=== PATIENT | female | born 1940 | race Caucasian/White ===

== ENCOUNTER 2017-08-05 06:54 | Day surgery (SDC) | payer MEDICARE, OTHER ==
[2017-08-05] MEDS ORDERED: Lactated Ringers 1,000 ML IV SCH (06:55)
[2017-08-05] MEDS ORDERED: Sodium Chloride 0.9% 5 ML Syringe FLUSH PRN (06:55)
[2017-08-05] MEDS ORDERED: Gatifloxacin 0.5% Ophth Soln 2.5 ML Bot EYERT SCH (06:55)
[2017-08-05] MEDS: Phenylephrine 10% Ophth Soln 5 ML Bot EYERT SCH ×3 (07:27→07:48)
[2017-08-05] MEDS: Cyclopentolate 1% Opth Soln 2 ML Bottle EYERT SCH ×3 (07:32→07:53)
[2017-08-05] MEDS ORDERED: Water For Irrigation,Sterile 1,500 ML Container IRR ONE (09:22)
[2017-08-05] MEDS ORDERED: Balanced Salt Solution Plus Ophth Irrig 500 ML Bottle IOCULAR ONE (09:23)
[2017-08-05] MEDS ORDERED: Tetracaine 0.5% 2 ML Bottle EYEBOTH ONE (09:23)
[2017-08-05] MEDS ORDERED: Carbachol 0.01% Intraocular 1.5 ML Vial EYERT ONE (09:23)
[2017-08-05] MEDS ORDERED: Balanced Salt Solution Ophth Irrig 15 ML Bottle EYERT ONE (09:23)
[2017-08-05] MEDS ORDERED: Dexamethasone/Neomycin/Polymyxin B Ophth Oint 3.5 GM Tube EYERT ONE (09:24)
[2017-08-05] MEDS ORDERED: EPINEPHrine 1 MG/ML SDV ONE (09:24)
[2017-08-05] MEDS ORDERED: Lidocaine 1% 10 ML MDV INJECT ONE (09:25)
[2017-08-05] MEDS ORDERED: Lidocaine 2% with EPINEPHrine 1:100,000 20 ML MDV INJECT ONE (09:25)
[2017-08-05] MEDS ORDERED: Hyaluronate Sodium 1% 0.85 ML Syringe IOCULAR ONE (09:26)
[2017-08-05 10:22] VITALS: BP 143/60
--- NOTE | 2017-08-06 08:21 | OR ---
DATE OF SURGERY: 08/05/2017 SURGEON: Yinka Osborn MD PREOPERATIVE DIAGNOSIS: Cataract, right eye. POSTOPERATIVE DIAGNOSIS: Cataract, right eye. OPERATION PERFORMED: Phacoemulsification with posterior chamber lens insertion, right eye. FINDINGS: The patient was taken to the operating room where appropriate anesthesia, sedation and monitoring were provided. A retrobulbar block was given on the right side. The eye was massaged and was found to be appropriately soft. The eye and eyelids were then prepped and draped in the usual sterile manner. A lid speculum was placed. A micro sharp blade was used to enter the anterior chamber inside the limbus superior-temporally. Xylocaine was irrigated into the eye at this site. Healon was irrigated into the eye through this site. Then using a 2.85 mm corneal blade an entry was made into the anterior chamber just inside the limbus temporally. Healon was again irrigated into the eye. Then using a cystitome, the anterior capsulorrhexis was created. The lens nucleus was hydrodissected using a 27 gauge cannula and balanced salt solution. The phacoemulsification unit was introduced through the temporal site and the Franco spatula through the superior temporal site. In so doing, the lens nucleus was phacoemulsified. The cortical fragments of the lens were removed using the irrigation aspiration unit. The posterior capsule was polished. Healon was irrigated into the eye. The posterior chamber lens was inserted and rotated into position inside the capsular bag. The Healon was irrigated out of the eye. Miostat was irrigated into the eye and the pupil rounded nicely. A single interrupted 10-0 Nylon suture was placed through the temporal corneal incision site. Balanced salt solution was irrigated into the eye. The wound was tested and found to be tight. Maxitrol ointment was placed into the patient's right eye. The eyelids were closed and an eye patch and llanos shield were placed. The patient left the operating room in good condition. /[id number]/MODL
== END 2017-08-05 10:19 | disposition home or self-care (01) ==
LOC: KA.SDS 06:54
PROVIDERS: ATTEND Ophthalmology
DX: H26.9 Unspecified cataract (principal); I10 Essential (primary) hypertension; E03.9 Hypothyroidism, unspecified; M81.0 Age-related osteoporosis without current pathological fracture; Z79.899 Other long term (current) drug therapy; Z98.890 Other specified postprocedural states
CPT/HCPCS: 66984; 93005; A9270; J0171; J7120; 00142; V2632

== ENCOUNTER 2017-09-02 06:09 | Day surgery (SDC) | payer MEDICARE, OTHER ==
[2017-09-02] MEDS ORDERED: Sodium Chloride 0.9% 5 ML Syringe FLUSH PRN (06:15)
[2017-09-02] MEDS ORDERED: Gatifloxacin 0.5% Ophth Soln 2.5 ML Bot EYELF SCH (06:15)
[2017-09-02] MEDS ORDERED: Lactated Ringers 1,000 ML IV SCH (06:15)
[2017-09-02] MEDS: Cyclopentolate 1% Opth Soln 2 ML Bottle EYELF SCH ×3 (06:24→06:45)
[2017-09-02] MEDS: Phenylephrine 10% Ophth Soln 5 ML Bot EYELF SCH ×3 (06:30→06:50)
[2017-09-02] MEDS ORDERED: Water For Irrigation,Sterile 1,500 ML Container IRR ONE (08:30)
[2017-09-02] MEDS ORDERED: Balanced Salt Solution Plus Ophth Irrig 500 ML Bottle IOCULAR ONE (08:31)
[2017-09-02] MEDS ORDERED: Carbachol 0.01% Intraocular 1.5 ML Vial EYELF ONE (08:31)
[2017-09-02] MEDS ORDERED: Balanced Salt Solution Ophth Irrig 15 ML Bottle EYELF ONE (08:31)
[2017-09-02] MEDS ORDERED: Tetracaine 0.5% 2 ML Bottle EYEBOTH ONE (08:31)
[2017-09-02] MEDS ORDERED: Dexamethasone/Neomycin/Polymyxin B Ophth Oint 3.5 GM Tube EYELF ONE (08:32)
[2017-09-02] MEDS ORDERED: EPINEPHrine 1 MG/ML SDV ONE (08:32)
[2017-09-02] MEDS ORDERED: Lidocaine 2% with EPINEPHrine 1:100,000 20 ML MDV INFILT ONE (08:33)
[2017-09-02] MEDS ORDERED: Phenylephrine 10% Ophth Soln 5 ML Bot EYELF ONE (08:34)
[2017-09-02] MEDS ORDERED: Lidocaine 1% 10 ML MDV INJECT ONE (08:34)
[2017-09-02] MEDS ORDERED: Hyaluronate Sodium 1% 0.85 ML Syringe IOCULAR ONE (08:35)
[2017-09-02 08:53] VITALS: BP 156/70
--- NOTE | 2017-09-03 09:51 | OR ---
DATE OF SURGERY: 09/02/2017 SURGEON: Yinka Osborn MD PREOPERATIVE DIAGNOSIS: Cataract, left eye. POSTOPERATIVE DIAGNOSIS: Cataract, left eye. OPERATION PERFORMED: Phacoemulsification with posterior chamber lens insertion, left eye. FINDINGS: The patient was taken to the operating room where appropriate anesthesia, sedation and monitoring were provided. A retrobulbar block was given on the left side. The eye was massaged and was found to be appropriately soft. The eye and eyelids were then prepped and draped in the usual sterile manner. A lid speculum was placed. A micro sharp blade was used to enter the anterior chamber inside the limbus inferior-temporally. Xylocaine was irrigated into the eye at this site. Healon was irrigated into the eye through this site. Then using a 2.85 mm corneal blade an entry was made into the anterior chamber just inside the limbus temporally. Healon was again irrigated into the eye. Then using a cystitome, the anterior capsulorrhexis was created. The lens nucleus was hydrodissected using a 27 gauge cannula and balanced salt solution. The phacoemulsification unit was introduced through the temporal site and the Franco spatula through the inferior temporal site. In so doing, the lens nucleus was phacoemulsified. The cortical fragments of the lens were removed using the irrigation aspiration unit. The posterior capsule was polished. Healon was irrigated into the eye. The posterior chamber lens was inserted and rotated into position inside the capsular bag. The Healon was irrigated out of the eye. Miostat was irrigated into the eye and the pupil rounded nicely. A single interrupted 10-0 Nylon suture was placed through the temporal corneal incision site. Balanced salt solution was irrigated into the eye. The wound was tested and found to be tight. Maxitrol ointment was placed into the patient's left eye. The eyelids were closed and an eye patch and llanos shield were placed. The patient left the operating room in good condition. /[id number]/MODL
== END 2017-09-02 09:16 | disposition home or self-care (01) ==
LOC: KA.SDS 06:09
PROVIDERS: ATTEND Ophthalmology
DX: H26.9 Unspecified cataract (principal); I10 Essential (primary) hypertension; E03.9 Hypothyroidism, unspecified; Z79.899 Other long term (current) drug therapy
CPT/HCPCS: 66984; A9270; J0171; J7120; 00142; V2632

== ENCOUNTER 2020-10-30 08:01 | Day surgery (SDC) | payer MEDICARE, OTHER ==
[~2020-10-30 08:01] MED LIST: Lactated Ringers 1,000 ML IV SCH; Sodium Chloride 0.9% 10 ML Syringe FLUSH PRN
[2020-10-30] MEDS ORDERED: Propofol 200 MG/20 ML SDV ONE (08:55)
[2020-10-30] MEDS: Lactated Ringers 1,000 ML ONE ×2 (10:40→13:39)
[2020-10-30] MEDS ORDERED: Lactated Ringers 1,000 ML IV SCH (10:40)
--- NOTE | 2020-10-30 11:03 | PCM.PRNOTE ---
- Free Text/Narrative Note: PROCEDURE PERFORMED: Esophagogastroduodenoscopy with biopsy and colonoscopy with biopsy PRE-PROCEDURE DIAGNOSIS/INDICATION FOR PROCEDURE: Iron deficiency anemia, history of colon cancer, last colonoscopy 08/18/2007 without pathologic findings CONSENT: Informed consent was obtained prior to the procedure after discussion of the risks (including pain, bleeding, infection, perforation, need for further procedures, inability to completely remove polyps or complete procedure necessitating repeat colonoscopy, adverse reaction to anesthesia, cardiovascular event), benefits and alternatives and expected outcomes. Verbal consent given and consent form signed. PROCEDURAL PAUSE: Completed SEDATION: Per anesthesia DESCRIPTION OF PROCEDURE: Patient was brought back to the operating room and placed in a left lateral decubitus position. Bite block placed. After adequate sedation and anesthetic was administered, endoscope was inserted into the patient's mouth and was passed easily through the esophagus and stomach into the duodenum without difficulty. Examined duodenum normal appearing. Pylorus and stomach with diffuse gastritis without active bleeding, but evidence of prior bleeding noted. 3cm hiatal hernia was present with the gastroesophageal junction at 39cm from the incisors. Esophagus normal appearing. The scope was removed without difficulty. Positioning adjusted and a rectal exam was performed revealing no anatomical abnormalities, but moderate dark red-brown stool noted. A lubricated Olympus Video Colonoscope was inserted into the rectum and air insufflation was performed. The colonoscope was carefully advanced through the rectum and initial 60cm of the colon without difficulties. From 65-75cm was noted to be a large circumferential obstructing colon mass with significant friability and active slow bleeding. Biopsies obtained and sent for pathology. Tattooing of mucosal wall just distal to area of mass was performed in 2 locations. The scope was withdrawn, noting no other obvious abnormalities of the colonic mucosa in the remaining distal colon and rectum. The scope was straightened, air suction performed, and the scope withdrawn without complication. Preparation adequacy good in the distal portion of the colon. Patient tolerated the procedure well. No complications. IMPRESSION: Esophagogastroduodenoscopy performed revealing: - Hiatal hernia, 3cm - Gastritis with biopsies obtained and pathology now pending Colonoscopy performed revealing: - Obstructing colon mass at 65-75cm with biopsies obtained and pathology now pending PLAN: Obtain CT chest/abdomen/pelvis to further evaluate presumed colon malignancy and guide further work-up and management. Pending results of this and pathology, will make further plans for follow-up.
[2020-10-30] MEDS ORDERED: Diatrizoate Meglumine/Diatrizoate Sodium 37% 30 ML Bottle PO ONE (11:54)
[2020-10-30] MEDS ORDERED: Iopamidol 755 Mg/ML 100 ML Bottle IV ONE (11:54)
[2020-10-30] MEDS ORDERED: Sodium Chloride 0.9% 50 ML IV SCH (12:00)
[2020-10-30 12:31] VITALS: BP 130/70; PULSE 87
--- NOTE | 2020-10-30 13:13 | CT ---
[id number] CT/CT Chest W IV Exam: CT Chest W IV Clinical Data: COLON MASS COMPARISON: NO PREVIOUS SIMILAR EXAM IS AVAILABLE FINDINGS: There are no lung masses The lungs are emphysematous. There is no mediastinal mass or adenopathy There are no pulmonary emboli The great vessels are intact IMPRESSION: NO METASTATIC DISEASE TO THE CHEST Enrique Rogers MD 10/30/20 [id number] Thank you for allowing us to participate in the care of your patient.
--- NOTE | 2020-10-30 13:13 | CT ---
[id number] CT/CT Abdomen Pelvis W IV EXAM: CT Abdomen Pelvis W IV CLINICAL DATA: COLON MASS COMPARISON: NO PREVIOUS SIMILAR EXAM IS AVAILABLE. FINDINGS: The gallbladder has been removed There is dilatation of the biliary radicals There are no discrete liver lesions There are tiny hepatic densities that likely represent cysts The spleen is unremarkable The aorta and adrenals are unremarkable The kidneys, pancreas, and retroperitoneum are otherwise unremarkable There are tiny renal cysts The pelvis shows no mass or adenopathy The uterus and ovaries are not seen There is evidence of pelvic floor relaxation The appendix is not identified IMPRESSION: NO METASTATIC DISEASE Enrique Rogers MD 10/30/20 [phone] Thank you for allowing us to participate in the care of your patient.
[2020-11-03 07:41] LABS: ANION GAP 16.1 mmol/L (5-15); CHLORIDE,CL 105 mmol/L (98-115); SODIUM,NA 140 mmol/L (136-145)
== END 2020-10-30 13:35 | disposition home or self-care (01) ==
LOC: KA.SDS 08:01
PROVIDERS: ATTEND Family Medicine
DX: C18.9 Malignant neoplasm of colon, unspecified (principal); D50.9 Iron deficiency anemia, unspecified; K31.89 Other diseases of stomach and duodenum; K44.9 Diaphragmatic hernia without obstruction or gangrene; K29.70 Gastritis, unspecified, without bleeding; I10 Essential (primary) hypertension; E03.9 Hypothyroidism, unspecified; Z79.890 Hormone replacement therapy; Z79.899 Other long term (current) drug therapy
CPT/HCPCS: 00811; 36415; 71260; 74177; 80053; 85025; J2704; J7120; Q9963; Q9967

== ENCOUNTER 2021-02-15 04:39 | Emergency (ER) | payer MEDICARE, OTHER ==
--- NOTE | 2021-02-15 05:08 | EDM.PDOC ---
ED HPI GENERAL MEDICAL PROBLEM - General Chief Complaint: General Stated Complaint: back pain Time Seen by Provider: 02/15/21 05:08 Source of Information: Reports: Patient History Limitations: Reports: No Limitations - History of Present Illness INITIAL COMMENTS - FREE TEXT/NARRATIVE: Kendal, 80-year-old female, presenting with a 2-week history of intractable back pain. States this started minimal and has progressed in its severity. She was unable to sleep last night as she cannot get a position of comfort. It remains in the L1-L2 range with bilateral radiation at times. She states that the worst the bone hurts the less it seems to radiate to the sides, and when the bone eases up it seems to radiate outward in a stronger condition. Prior to last night ibuprofen had taken the edge off but showed no improvement in the past 24 hours. It is noted she was vacuuming prior to this occurrence at her residence. She denies any falls or issues that would place her at higher risk for compression fracture but she is noted to be osteoporotic so compression fracture considerations would need to be ruled out as well as lumbar strain. Underwent transfusion in the past week secondary of anemia post colostomy procedure. Denies any shortness of breath or chest pain. No noted changes in colostomy output. Bilateral Lower Back Pain Score (Numeric/FACES): 8 - Related Data Allergies Allergy/AdvReac Type Severity Reaction Status Date / Time No Known Drug Allergies Allergy Other Verified 02/15/21 05:06 Home Meds: Home Meds Amitriptyline [Elavil] 10 mg PO BEDTIME 07/30/17 [History] Cholecalciferol (Vitamin D3) [Vitamin D3] 1,000 unit PO DAILY 07/30/17 [History] Indapamide 2.5 mg PO DAILY 07/30/17 [History] Levothyroxine [Synthroid] 100 mcg PO DAILY 07/30/17 [History] Lisinopril [Prinivil] 10 mg PO DAILY 07/30/17 [History] Raloxifene [Evista] 60 mg PO DAILY 07/30/17 [History] Ascorbate Calcium [Vitamin C] 500 mg PO Q48H 10/27/20 [History] Iron Polysaccharides Complex [Ferrex 150] 150 mg PO Q48H 10/27/20 [History] Acetaminophen 1,000 mg PO Q6H PRN 02/15/21 [History] Calcium Carbonate [Calcium] 75 mg PO DAILY 02/15/21 [History] Furosemide [Lasix] 10 mg PO Q48H 02/15/21 [History] Omeprazole 20 mg PO QAM 02/15/21 [History] Past Medical History HEENT History: Reports: Cataract Cardiovascular History: Reports: Hypertension Gastrointestinal History: Reports: None Genitourinary History: Reports: None [employer] History: Reports: Musculoskeletal History: Reports: Arthritis Endocrine/Metabolic History: Reports: Hypothyroidism Immunologic History: Reports: Immunosuppression Oncologic (Cancer) History: Reports: Colon - Infectious Disease History Infectious Disease History: Reports: Chicken Pox, Measles, Mumps - Past Surgical History HEENT Surgical History: Reports: Cataract Surgery Cardiovascular Surgical History: Reports: None GI Surgical History: Reports: Appendectomy, Cholecystectomy, Colonoscopy, Colostomy, Small Bowel Female Surgical History: Reports: Hysterectomy Endocrine Surgical History: Reports: None Musculoskeletal Surgical History: Reports: None Oncologic Surgical History: Reports: Other (See Below) Other Oncologic Surgeries/Procedures: BOWEL RESECTION Social & Family History - Family History Family Medical History: No Pertinent Family History - Caffeine Use Caffeine Use: Reports: Coffee ED ROS GENERAL - Review of Systems Review Of Systems: Comprehensive ROS is negative, except as noted in HPI. Constitutional: Reports: No Symptoms HEENT: Reports: No Symptoms Respiratory: Reports: No Symptoms. Denies: Shortness of Breath Cardiovascular: Reports: No Symptoms. Denies: Chest Pain GI/Abdominal: Denies: Abdominal Pain ED EXAM, GENERAL - Physical Exam Exam: See Below Free Text/Narrative:: Alert, oriented, with mild painful distress that is positionally worsened. HEENT is negative discharge or deformity with pink moist mucous membranes. Neck is soft supple no rigidity. Thorax is overall clear with no wheezes no crackles. Cardiac is regular I do not appreciate murmur. Abdomen is soft colostomy bag is present with product noted with no gross abnormality. No abdominal discomfort. There is tenderness in the lumbar region to palpation directly over the lumbar spine L1 to region with some radiation outward depending on positioning. I did not note any bruising nor hematoma formation. She denies any radiation into the legs. She cannot find a position of complete comfort, with worsening of the discomfort to the spinal column itself with motion and arising to standing position. She is somewhat slowed in her gait secondary of this, but is able to ambulate. No deficits are noted to the strength of the lower extremities. Course - Vital Signs Last Recorded V/S: Last Vital Signs Temp 96.6 F L 02/15/21 04:44 Pulse 71 02/15/21 06:15 Resp 17 02/15/21 06:15 BP 151/80 H 02/15/21 06:15 Pulse Ox 100 02/15/21 06:15 - Orders/Labs/Meds Orders: Active Orders 24 hr Category Date Time Status Lumbar Spine 2 or 3V [CR] Stat Exams 02/15/21 05:24 Ordered CULTURE URINE [RM] Urgent Lab 02/15/21 05:20 Received Labs: Laboratory Tests 02/15/21 02/15/21 02/15/21 Range/Units 05:20 05:50 05:50 WBC 5.53 (5.00-10.00) 10^3/uL RBC 3.05 L (3.80-5.50) 10^6/uL Hgb 8.1 L D (12.0-16.0) g/dL Hct 25.8 L (37.0-47.0) % MCV 84.6 D (82.0-92.0) fL MCH 26.6 L (27.0-31.0) pg MCHC 31.4 L (32.0-36.0) g/dL RDW 17.2 H (11.5-14.5) % Plt Count 339 (150-400) 10^3/uL MPV 9.4 (7.4-10.4) fL Immature Gran % (Auto) 0.0 (0.0-5.0) % Neut % (Auto) 63.5 (50.0-70.0) % Lymph % (Auto) 20.1 (20.0-40.0) % Barron % (Auto) 13.0 H (2.0-8.0) % Eos % (Auto) 2.5 (1.0-3.0) % Baso % (Auto) 0.9 (0.0-1.0) % Neut # (Auto) 3.51 (2.50-7.00) 10^3/uL Lymph # (Auto) 1.11 (1.00-4.00) 10^3/uL Barron # (Auto) 0.72 (0.10-0.80) 10^3/uL Eos # (Auto) 0.14 (0.10-0.30) 10^3/uL Baso # (Auto) 0.05 (0.00-0.10) 10^3/uL Immature Gran # (Auto) 0.00 (0.00-0.50) 10^3/uL Sodium 143 (136-145) mmol/L Potassium 3.3 L (3.5-5.1) mmol/L Chloride 105 (98-107) mmol/L Carbon Dioxide 27.5 (21.0-32.0) mmol/L Anion Gap 13.8 (5-15) mmol/L BUN 26 H (7-18) mg/dL Creatinine 0.71 (0.51-1.17) mg/dL Est Cr Clr Drug Dosing 40.05 mL/min Estimated GFR (MDRD) > 60 mL/min Glucose 101 (70-140) mg/dL Calcium 8.8 (8.7-10.3) mg/dL Total Bilirubin 0.3 (0.2-1.0) mg/dL AST 18 (15-37) U/L ALT 18 (14-63) U/L Alkaline Phosphatase 72 (46-116) U/L Total Protein 6.5 (6.4-8.2) g/dL Albumin 3.54 (3.40-5.00) g/dL Specimen Type Urinvoid Urine Color Yellow (YELLOW) Urine Appearance Clear (CLEAR) Urine pH 6.0 (5.0-9.0) Ur Specific [place] 1.015 (1.005-1.030) Urine Protein Negative (NEGATIVE) mg/dL Urine Glucose (UA) Negative (NEGATIVE) mg/dL Urine Ketones Negative (NEGATIVE) mg/dL Urine Occult Blood Trace-intact H (NEGATIVE) Urine Nitrite Negative (NEGATIVE) Urine Bilirubin Negative (NEGATIVE) Urine Urobilinogen 0.2 (0.2-1.0) E.U./dL Ur Leukocyte Esterase Small H (NEGATIVE) Urine RBC 0-5 (0-5) /HPF Urine WBC 10-20 H (0-5) /HPF Ur Epithelial Cells Few /LPF Urine Bacteria Rare (NONE TO FEW) /HPF Urine Mucus Rare H (NEGATIVE) /LPF - Re-Assessments/Exams Free Text/Narrative Re-Assessment/Exam: 02/15/21 06:42 Noted slight favoring to the left side with her gait but is able to get up from the cart and ambulate with no assistance nor major deficit. Able to review x- rays with me with no increased difficulty. She is understanding and the fact that there is no medication to fix this and highly recommend physical therapy strengthening conditioning as well as the possibility for lumbar injection to control discomfort. Departure - Departure Time of Disposition: 06:34 Disposition: Home, Self-Care 01 Condition: Fair Clinical Impression: Lumbar back pain, Degenerative disc disease, lumbar, Strain of lumbar spine - Discharge Information *PRESCRIPTION DRUG MONITORING PROGRAM REVIEWED*: Not Applicable Instructions: Acute Back Pain, Adult, What You Need to Know About Chronic Back Pain, Degenerative Disk Disease Referrals: Mercedes Meza MD [Primary Care Provider] - Rachana Leahy PA-C [Physician] - Forms: ED Department Discharge Additional Instructions: There are no acute findings on your x-rays performed today. Your hemoglobin came up to 8.1 after your transfusion. You have multilevel degenerative disc disease with a curvature of your spine. The treatment of this may include physical therapy to see if they can strengthen and maintain improved position alignment. Other options are for injections and medication to control the pain at the source of the disc disease. This would be best served by discussing the findings with your provider to determine the safest and most beneficial realm of treatment. It is likely that vacuuming could have exacerbated your chronic condition. There is not really a pill form of medication that will fix this issue, and combination of long-term medication effects place considerations for effective treatment. Contact the clinic to arrange for discussion for their opinion after review of the reports for therapy consideration, or the possibility of local injection for pain management. Your potassium is down slightly which may be corrected by eating potassium containing foods such as bananas and potatoes. This could be affected because you had the blood transfusion last week. Contact your clinic for reevaluation of your spine conditions for discussion on therapy or other treatments as well as a recheck on your potassium level. Sepsis Event Note (ED) - Focused Exam Vital Signs: Vital Signs Temp Pulse Resp BP Pulse Ox 02/15/21 06:15 71 17 151/80 H 100 02/15/21 06:09 76 22 H 141/82 H 99 02/15/21 05:15 72 18 163/86 H 97 02/15/21 05:00 76 15 157/89 H 100 02/15/21 04:45 173/86 H 02/15/21 04:44 96.6 F L 76 22 H 168/94 H 100 - Problem List & Annotations (1) Lumbar back pain SNOMED Code(s): 165251150 Code(s): M54.5 - LOW BACK PAIN Status: Acute Priority: High (2) Status post colostomy SNOMED Code(s): 226209007, 317754056, 953085973 Code(s): Z93.3 - COLOSTOMY STATUS Status: Acute (3) Degenerative disc disease, lumbar SNOMED Code(s): 95173073 Code(s): M51.36 - OTHER INTERVERTEBRAL DISC DEGENERATION, LUMBAR REGION Status: Chronic Priority: High (4) Strain of lumbar spine SNOMED Code(s): 547344389 Code(s): S39.012A - STRAIN OF MUSCLE, FASCIA AND TENDON OF LOWER BACK, INIT Status: Acute Priority: High Qualifiers: Encounter type: initial encounter Qualified Code(s): S39.012A - Strain of muscle, fascia and tendon of lower back, initial encounter (5) Hypokalemia SNOMED Code(s): 33255590 Code(s): E87.6 - HYPOKALEMIA Status: Acute Priority: Medium - Problem List Review Problem List Initiated/Reviewed/Updated: Yes - My Orders Last 24 Hours: My Active Orders 02/15/21 05:20 CULTURE URINE [RM] Urgent 02/15/21 05:24 Lumbar Spine 2 or 3V [CR] Stat - Assessment/Plan Last 24 Hours: My Active Orders 02/15/21 05:20 CULTURE URINE [RM] Urgent 02/15/21 05:24 Lumbar Spine 2 or 3V [CR] Stat Plan: There are no acute findings on your x-rays performed today. Your hemoglobin came up to 8.1 after your transfusion. You have multilevel degenerative disc disease with a curvature of your spine. The treatment of this may include physical therapy to see if they can strengthen and maintain improved position alignment. Other options are for injections and medication to control the pain at the source of the disc disease. This would be best served by discussing the findings with your provider to determine the safest and most beneficial realm of treatment. It is likely that vacuuming could have exacerbated your chronic condition. There is not really a pill form of medication that will fix this issue, and combination of long-term medication effects place considerations for effective treatment. Contact the clinic to arrange for discussion for their opinion after review of the reports for therapy consideration, or the possibility of local injection for pain management. Your potassium is down slightly which may be corrected by eating potassium containing foods such as bananas and potatoes. This could be affected because you had the blood transfusion last week. Contact your clinic for reevaluation of your spine conditions for discussion on therapy or other treatments as well as a recheck on your potassium level.
[2021-02-15 06:24] LABS: ANION GAP 13.8 mmol/L (5-15); CHLORIDE,CL 105 mmol/L (98-107); SODIUM,NA 143 mmol/L (136-145)
[2021-02-15 06:25] VITALS: BP 151/80; PULSE 71
--- NOTE | 2021-02-15 08:11 | CR ---
[id number] RAD/RAD Lumbar Spine 2-3V EXAM: AP AND LATERAL LUMBAR SPINE. INDICATION: Back pain. COMPARISON: No previous similar exam is available for comparison. FINDINGS: No fracture or subluxation is seen. Moderate dextroscoliotic curvature of the lumbar spine with the apex centered at the L1-L2 level. Multilevel degenerative changes of the lumbar spine including loss of disc space height, endplate osteophytosis and facet arthropathy. Findings are most rubs at L5-S1. The pedicles are intact. IMPRESSION: NO ACUTE FRACTURE OR SUBLUXATION. Harshal Knowles DO 02/15/21 0810 Thank you for allowing us to participate in the care of your patient.
== END 2021-02-15 06:54 | disposition home or self-care (01) ==
LOC: KA.ED 04:39
DX: M51.36 Other intervertebral disc degeneration, lumbar region (principal); S39.012A Strain of muscle, fascia and tendon of lower back, initial encounter; I10 Essential (primary) hypertension; E03.9 Hypothyroidism, unspecified; Z79.899 Other long term (current) drug therapy; X58.XXXA Exposure to other specified factors, initial encounter
CPT/HCPCS: 36415; 72100; 80053; 81001; 85025; 87086; 99283-25; 99284

== ENCOUNTER 2021-02-18 14:11 | Emergency (ER) | payer MEDICARE, OTHER ==
--- NOTE | 2021-02-18 14:58 | EDM.PDOC ---
ED HPI GENERAL MEDICAL PROBLEM - General Chief Complaint: Neuro Symptoms/Deficits Stated Complaint: weakness, tingling in arms Time Seen by Provider: 02/18/21 14:26 Source of Information: Reports: Patient History Limitations: Reports: No Limitations, Other (daughter at bedside) - History of Present Illness INITIAL COMMENTS - FREE TEXT/NARRATIVE: Presents the emergency room escorted by daughter for chief complaint of generalized "weakness" and increased falls. The patient has history of colon cancer recent colectomy with the status post colostomy done about a month ago. Patient has fallen 3 different times at home today with nontraumatic falls the daughter was close by and was able to help her get her up with max assist. There has been no injuries after the falls. She denies any syncope near syncope episodes or loss of consciousness with these falls or head injury. She notes she was just weak and unsteady which caused her to fall. The patient has been weak and having generalized weakness and paresthesias and numbness to her bilateral fingers hands and wrist aggressively worsening for the past 2 weeks. 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 She has noticed this worsening for the past week. Patient was seen recently in the emergency room on for low back pain x- ray was done and she had lab work done at the [facility] 3 days ago which revealed hemoglobin 8.1 which has been improving from the previous week and her potassium was 3.3. She was told to increase her potassium in her diet was discharged home with the care of her daughter. - Related Data Allergies Allergy/AdvReac Type Severity Reaction Status Date / Time No Known Drug Allergies Allergy Other Verified 02/18/21 14:18 Home Meds: Home Meds Amitriptyline [Elavil] 10 mg PO BEDTIME 07/30/17 [History] Cholecalciferol (Vitamin D3) [Vitamin D3] 1,000 unit PO QPM 07/30/17 [History] Indapamide 2.5 mg PO DAILY 07/30/17 [History] Levothyroxine [Synthroid] 100 mcg PO DAILY 07/30/17 [History] Lisinopril [Prinivil] 10 mg PO DAILY 07/30/17 [History] Raloxifene [Evista] 60 mg PO QPM 07/30/17 [History] Ascorbate Calcium [Vitamin C] 500 mg PO Q48H 10/27/20 [History] Iron Polysaccharides Complex [Ferrex 150] 150 mg PO Q48H 10/27/20 [History] Acetaminophen 1,000 mg PO Q6H PRN 02/15/21 [History] Furosemide [Lasix] 10 mg PO Q48H 02/15/21 [History] Omeprazole 20 mg PO QAM 02/15/21 [History] Past Medical History HEENT History: Reports: Cataract Other HEENT History: cataracts done in 2017 Cardiovascular History: Reports: Hypertension Gastrointestinal History: Reports: None, Gastritis, GERD, GI Bleed Other Gastrointestinal History: chronic superficial gastritis with bleeding Genitourinary History: Reports: None MEETING COORDINATOR History: Reports: Musculoskeletal History: Reports: Arthritis, Back Pain, Chronic, Osteoporosis Other Neuro History: Williamson's Palsy Endocrine/Metabolic History: Reports: Hypothyroidism Hematologic History: Reports: Anemia, Blood Transfusion(s), Iron Deficiency Immunologic History: Reports: Immunosuppression Oncologic (Cancer) History: Reports: Colon - Infectious Disease History Infectious Disease History: Reports: Chicken Pox, Measles, Mumps - Past Surgical History HEENT Surgical History: Reports: Cataract Surgery Cardiovascular Surgical History: Reports: None GI Surgical History: Reports: Appendectomy, Cholecystectomy, Colonoscopy, Colostomy, Small Bowel Other GI Surgeries/Procedures: colonic mass Female Surgical History: Reports: Hysterectomy Endocrine Surgical History: Reports: None Musculoskeletal Surgical History: Reports: None Oncologic Surgical History: Reports: Other (See Below) Other Oncologic Surgeries/Procedures: BOWEL RESECTION Social & Family History - Family History Family Medical History: No Pertinent Family History - Caffeine Use Caffeine Use: Reports: None ED ROS GENERAL - Review of Systems Review Of Systems: See Below Constitutional: Reports: Weakness. Denies: Fever HEENT: Reports: No Symptoms Respiratory: Reports: No Symptoms. Denies: Shortness of Breath Cardiovascular: Reports: No Symptoms. Denies: Chest Pain, Edema GI/Abdominal: Reports: Other (has a colostomy from recent colectomy surgery). Denies: Nausea, Vomiting : Reports: No Symptoms. Denies: Dysuria, Flank Pain, Frequency Musculoskeletal: Reports: Other (generalized muscle weakness) Neurological: Reports: Numbness, Paresthesia, Weakness, Other (bilatealy arm numbness and paresthesia for the past 2 weeks). Denies: Confusion, Headache, Syncope, Trouble Speaking, Change in Speech Psychiatric: Reports: No Symptoms ED EXAM, NEURO - Physical Exam Exam: See Below Exam Limited By: No Limitations General Appearance: Alert, WD/WN, No Apparent Distress Eye Exam: Bilateral Eye: EOMI, PERRL Throat/Mouth: Normal Inspection, Normal Lips, Normal Oropharynx Head Exam: Atraumatic, Normocephalic Neck: Normal Inspection, Supple, Non-Tender, Full Range of Motion Respiratory/Chest: No Respiratory Distress, Lungs Clear, Normal Breath Sounds Cardiovascular: Normal Peripheral Pulses, Regular Rate, Rhythm, No Edema GI/Abdominal: Normal Bowel Sounds, Soft, Non-Tender, Other (colostomy noted with brown stool) Neurological: Alert, Normal Mood/Affect, Normal Dorsiflexion, CN II-XII Intact, Normal Plantar Flexion, Normal Reflexes, Oriented x 3, Difficulty Walking, Other (difficulty walking to generalized weakness, she does have baseline right facial droop from bells palsy.). No: Abnormal Sensation Back Exam: Other (severe kyphosis noted, no vertebrae tenderness) Extremities: Normal Inspection, Normal Range of Motion, Non-Tender, No Pedal Edema, Normal Capillary Refill, Mottled Psychiatric: Normal Affect, Normal Mood Skin Exam: Dry, Intact #1 Interpretation EKG Date: 02/18/21 Time: 14:58 Rhythm: NSR Deep[place]: RAD-Right [place] Deviation P-Wave: Present QRS: Normal ST-T: Normal QT: Normal Comparison: NA - No Prior EKG (occassional PVC noted) Course - Vital Signs Last Recorded V/S: Last Vital Signs Temp 97.4 F 02/18/21 15:40 Pulse 77 02/18/21 15:40 Resp 20 02/18/21 15:40 BP 149/84 H 02/18/21 15:40 Pulse Ox 98 02/18/21 15:40 - Orders/Labs/Meds Orders: Active Orders 24 hr Category Date Time Status EKG Documentation Completion [RC] ASDIRECTED Care 02/18/21 14:50 Active Magnesium Sulfate/Water [Magnesium Sulfate in Water 4 Med 02/18/21 16:15 Ordered GM/100 ML] 100 ml IV ONETIME EKG 12 Lead [EK] Stat Ther 02/18/21 14:50 Ordered Medication Orders Magnesium Sulfate (Magnesium Sulfate In Water 4 Gm/100 Ml) 100 mls @ 25 mls/hr IV ONETIME [facility] Labs: Laboratory Tests 02/18/21 02/18/21 02/18/21 Range/Units 14:20 14:20 14:20 WBC 7.40 (5.00-10.00) 10^3/uL RBC 3.09 L (3.80-5.50) 10^6/uL Hgb 8.1 L (12.0-16.0) g/dL Hct 25.5 L (37.0-47.0) % MCV 82.5 (82.0-92.0) fL MCH 26.2 L (27.0-31.0) pg MCHC 31.8 L (32.0-36.0) g/dL RDW 17.3 H (11.5-14.5) % Plt Count 396 (150-400) 10^3/uL MPV 10.8 H (7.4-10.4) fL Immature Gran % (Auto) 0.1 (0.0-5.0) % Neut % (Auto) 71.9 H (50.0-70.0) % Lymph % (Auto) 14.5 L (20.0-40.0) % [place] % (Auto) 11.9 H (2.0-8.0) % Eos % (Auto) 1.2 (1.0-3.0) % Baso % (Auto) 0.4 (0.0-1.0) % Neut # (Auto) 5.32 (2.50-7.00) 10^3/uL Lymph # (Auto) 1.07 (1.00-4.00) 10^3/uL [place] # (Auto) 0.88 H (0.10-0.80) 10^3/uL Eos # (Auto) 0.09 L (0.10-0.30) 10^3/uL Baso # (Auto) 0.03 (0.00-0.10) 10^3/uL Immature Gran # (Auto) 0.01 (0.00-0.50) 10^3/uL Sodium 140 (136-145) mmol/L Potassium 3.5 (3.5-5.1) mmol/L Chloride 101 (98-107) mmol/L Carbon Dioxide 25.5 (21.0-32.0) mmol/L Anion Gap 17.0 H (5-15) mmol/L BUN 25 H (7-18) mg/dL Creatinine 0.78 (0.51-1.17) mg/dL Est Cr Clr Drug Dosing 36.45 mL/min Estimated GFR (MDRD) > 60 mL/min Glucose 160 H (70-140) mg/dL Calcium 8.8 (8.7-10.3) mg/dL Magnesium 1.5 L (1.8-2.4) mg/dL Total Bilirubin 0.3 (0.2-1.0) mg/dL AST 26 (15-37) U/L ALT 21 (14-63) U/L Alkaline Phosphatase 66 (46-116) U/L Creatine Kinase 177 (26-276) U/L Total Protein 6.6 (6.4-8.2) g/dL Albumin 3.62 (3.40-5.00) g/dL TSH, Ultra Sensitive 7.580 H (0.340-4.820) uIU/mL Meds: Medications Generic Name Dose Route Start Last Admin Trade Name Freq PRN Reason Stop Dose Admin Magnesium Sulfate 100 mls @ 25 mls/hr 02/18/21 16:15 Magnesium Sulfate In Water 4 Gm/100 Ml IV ONETIME JATIN - Re-Assessments/Exams Free Text/Narrative Re-Assessment/Exam: 02/18/21 15:07 Labs none intravenous lock was placed quality assurance monitor hooked up occasional PVC blood pressure 134/78 heart rate 93. EKG within normal limits, CT scan head ordered to her generalized weakness numbness to her fingers history of cancer recent falls. Patient is a very pleasant 80-year-old female alert oriented no focal neurological deficits is having some increased left upper extremity weakness however she is able to move it just not able to hold it up as high as the right arm. She notes having significant arthritis to her left shoulder. She has noticed bilateral tingling and numbness to her fingers and hands progressively worse over the past 2 weeks. Patient has anemia hemoglobin last 3 days ago 8.1 and potassium was 3.3. Urine that was completed 3 days ago showed trace leukocytes and trace blood no urine culture was obtained. Patient denies any urinary symptoms. At this time. CODE STATUS addressed patient confirmed that she does not want to be RESUSCITATED with CPR or intubated with artificial airway if her heart would happen to stop however she DOES want all medication and all necessary noninvasive measures during the resuscitation. The patient is completely alert and orientated and is clearly able to make that decision. code status documentation was completed. waiting on labs and CT. will consult precipitation equipment tender whittier provider when labs and imaging returns. 02/18/21 15:11 02/18/21 15:39 CT head completed. Canceled urinalysis as she had a recent culture after that UA, and it showed mixed terrance, patient denies any urinary symptoms therefore canceled UA. Patient resting comfortably visiting with staff no complaints at this time she is in no pain. She continues to have the numbness and tingling to her fingertips and hands. Labs pending 02/18/21 16:[address] scan of the head negative. Potassium normal slightly low magnesium will replace with 2 g IV magnesium that may also help her weakness and paresthesias. I did speak to the on-call provider William Mclaughlin patient does not meet criteria to have inpatient admission. I do agree with discussed with the patient and daughter going home patient lives with her daughter discussed not to leave the patient alone when the daughter is gone at work. They are going to make arrangement with the PCP this week for further evaluation management to discuss her chronic conditions. Hemoglobin is also stable. Fall prevention discussed with daughter and patient as well. Return precaution discussed low threshold on returning. Departure - Departure Time of Disposition: 16:13 Disposition: Home, Self-Care 01 Preliminary Cause of *Q: Cardiac Arrest Condition: Good Clinical Impression: Hypomagnesemia, Weakness, Recurrent falls - Discharge Information *PRESCRIPTION DRUG MONITORING PROGRAM REVIEWED*: No *COPY OF PRESCRIPTION DRUG MONITORING REPORT IN PATIENT SYLVAIN: No Instructions: Fall Prevention in the Home, Adult, [id number], Hypomagnesemia, Fatigue Referrals: Mercedes Meza MD [Primary Care Provider] - Forms: ED Department Discharge Additional Instructions: Call the clinic tomorrow morning schedule close follow-up this week for reevaluation with PCP discuss further evaluation management for her chronic conditions. Sepsis Event Note (ED) - Evaluation Sepsis Screening Result: No Definite Risk - Focused Exam Vital Signs: Vital Signs Temp Pulse Resp BP Pulse Ox 02/18/21 15:40 97.4 F 77 20 149/84 H 98 02/18/21 15:24 80 20 145/86 H 97 02/18/21 15:00 88 19 134/79 97 02/18/21 14:35 88 14 130/77 02/18/21 14:32 97.5 F 88 18 137/69 97 - My Orders Last 24 Hours: My Active Orders 02/18/21 14:50 EKG Documentation Completion [RC] ASDIRECTED EKG 12 Lead [EK] Stat 02/18/21 16:15 Magnesium Sulfate/Water [Magnesium Sulfate in Water 4 GM/100 ML] 100 ml IV ON ETIME - Assessment/Plan Last 24 Hours: My Active Orders 02/18/21 14:50 EKG Documentation Completion [RC] ASDIRECTED EKG 12 Lead [EK] Stat 02/18/21 16:15 Magnesium Sulfate/Water [Magnesium Sulfate in Water 4 GM/100 ML] 100 ml IV ONETIME
[2021-02-18 15:40] LABS: CHLORIDE,CL 101 mmol/L (98-107); SODIUM,NA 140 mmol/L (136-145)
[2021-02-18 15:52] VITALS: BP 149/84; PULSE 77
--- NOTE | 2021-02-18 16:00 | CT ---
[id number] CT/CT Head WO IV EXAM: CT Head WO IV CLINICAL DATA: WEAKNESS, HX OF COLON CANCER,FREQUENT FALLS. COMPARISON STUDY: None FINDINGS: No intracranial hemorrhage, extra-axial fluid collection, mass, or acute ischemia. Generalized parenchymal atrophy with scattered areas of nonspecific white matter disease, commonly seen as sequela of chronic microvascular ischemia. Soft tissues are unremarkable. Paranasal sinuses and mastoid air cells are clear. IMPRESSION: No acute intracranial findings. Harshal Knowles DO 02/18/21 1600 Thank you for allowing us to participate in the care of your patient.
[2021-02-18] MEDS ORDERED: Magnesium Sulfate/Water 2 GM/50 ML BAG IV ONE (16:15)
[2021-02-18] MEDS ORDERED: Sodium Chloride 0.9% 50 ML IV SCH (16:30)
== END 2021-02-18 18:51 | disposition home or self-care (01) ==
LOC: KA.ED 14:11
DX: E83.42 Hypomagnesemia (principal); R29.6 Repeated falls; M40.209 Unspecified kyphosis, site unspecified; I10 Essential (primary) hypertension; K21.9 Gastro-esophageal reflux disease without esophagitis; E03.9 Hypothyroidism, unspecified; D50.9 Iron deficiency anemia, unspecified; Z79.899 Other long term (current) drug therapy
CPT/HCPCS: 70450; 80053; 82550; 83735; 84443; 85025; 93005; 96365; 96366; 99284; 99285-25; J3475

== ENCOUNTER 2022-10-29 06:49 | Day surgery (SDC) | payer MEDICARE, OTHER ==
[2022-10-29] MEDS ORDERED: Sodium Chloride 0.9% 10 ML Syringe FLUSH PRN (07:00)
[2022-10-29] MEDS ORDERED: Lactated Ringers 1,000 ML IV SCH (07:00)
[2022-10-29] MEDS ORDERED: Propofol 200 MG/20 ML SDV ONE (07:49)
[2022-10-29] MEDS ORDERED: Glycopyrrolate 0.2 MG/ML SDV ONE (07:49)
[2022-10-29] MEDS ORDERED: Lidocaine 2% 5 ML SDV ONE (07:50)
[2022-10-29 09:40] VITALS: BP 161/71; PULSE 93
== END 2022-10-29 09:47 | disposition home or self-care (01) ==
LOC: KA.SDS 06:49
PROVIDERS: ATTEND Family Medicine
DX: K31.89 Other diseases of stomach and duodenum (principal); K29.70 Gastritis, unspecified, without bleeding; K44.9 Diaphragmatic hernia without obstruction or gangrene; I10 Essential (primary) hypertension; D50.9 Iron deficiency anemia, unspecified; G62.9 Polyneuropathy, unspecified; E03.9 Hypothyroidism, unspecified; F41.9 Anxiety disorder, unspecified; F33.9 Major depressive disorder, recurrent, unspecified; M81.0 Age-related osteoporosis without current pathological fracture; E53.8 Deficiency of other specified B group vitamins; K21.9 Gastro-esophageal reflux disease without esophagitis; Z79.899 Other long term (current) drug therapy; Z79.890 Hormone replacement therapy; Z90.49 Acquired absence of other specified parts of digestive tract; Z98.890 Other specified postprocedural states
CPT/HCPCS: J2704; J3490; J7120